=== PATIENT | female | born 1985 | race Caucasian/White ===

== ENCOUNTER → 2022-04-18 | Outpatient (CLI) | payer OTHER ==
--- NOTE | 2022-04-19 12:14 | MM ---
Reason for Exam: Screening (asymptomatic). Last mammogram was performed 2 year(s) and 7 month(s) ago. Patient History: Menarche at age 11. First Full-Term at age 25. Premenopausal. Patient used Hormonal Contraceptives for 7 years. Mother had breast cancer, age 53. Risk Values: Desiree 5 year model risk: 0.8%. NCI Lifetime model risk: 19.0%. Prior Study Comparison: 10/14/2019 Bilateral MG 3D screening mammo w/cad, [facility]. Tissue Density: The breast tissue is extremely dense which could obscure a lesion on mammography. Findings: Analyzed By CAD. There are few scattered benign-appearing round calcifications throughout both breasts redemonstrated. Tortuous prominent vessel upper aspect right breast again seen. There is no suspicious group of microcalcifications or new suspicious mass in either breast. Overall Assessment: Benign, BI-RAD 2 Management: Screening Mammogram of both breasts at age 39. Some advise bilateral breast ultrasound surveillance in patients with background extremely dense tissue. Electronically signed and approved by: Margarito Garcia M.D.
== END | disposition home or self-care (01) ==
LOC: RADMAMWWP 09:03
PROVIDERS: ATTEND Obstetrics & Gynecology
DX: Z12.31 Encounter for screening mammogram for malignant neoplasm of breast (principal); Z80.3 Family history of malignant neoplasm of breast
CPT/HCPCS: 77063; 77067

== ENCOUNTER 2023-08-01 07:52 | Day surgery (SDC) | payer BC, OTHER ==
[2023-07-31 11:33] VITALS: BMI 22.1
--- NOTE | 2023-07-31 14:41 | P.HPOB ---
History of Present Illness H&P Date: 07/31/23 Chief Complaint: menorrhagia 38 year old presents for D&C hysteroscopy and endometrial ablation with NovaSure. Review of Systems All systems: negative Constitutional: Denies chills, Denies fever Eyes: denies blurred vision, denies pain Ears, nose, mouth and throat: Denies headache, Denies sore throat Cardiovascular: Denies chest pain, Denies shortness of breath Respiratory: Denies cough Gastrointestinal: Denies abdominal pain, Denies diarrhea, Denies nausea, Denies vomiting Genitourinary: Denies dysuria, Denies hematuria Musculoskeletal: Denies myalgias Integumentary: Denies pruritus, Denies rash Neurological: Denies numbness, Denies weakness Psychiatric: Denies anxiety, Denies depression Endocrine: Denies fatigue, Denies weight change Past Medical History Past Medical History: No Reported History Additional Past Medical History / Comment(s): irregular and heavy menses History of Any Multi-Drug Resistant Organisms: None Reported Additional Past Surgical History / Comment(s): LEEP, wisdom teeth extracted. Past Anesthesia/Blood Transfusion Reactions: No Reported Reaction Additional Past Anesthesia/Blood Transfusion Reaction / Comment(s): no hx blood transfusion Smoking Status: Former smoker - Past Family History Mother Family Medical History: Cancer Additional Family Medical History / Comment(s): Breast cancer- at age 53 Father Family Medical History: Hypertension, Myocardial Infarction (CA) Medications and Allergies Home Medications Medication Instructions Recorded Confirmed Type Biotin 5 mg PO DAILY 07/31/23 07/31/23 History Magnesium 250 mg PO DAILY 07/31/23 07/31/23 History Allergies Allergy/AdvReac Type Severity Reaction Status Date / Time amoxicillin Allergy Unknown Verified 07/31/23 11:24 Childhood ciprofloxacin [From Cipro] Allergy "Bad Verified 07/31/23 11:24 mental thoughts."" Penicillins Allergy Rash/Hives Verified 07/31/23 11:24 sulfamethoxazole AdvReac "Red, Verified 07/31/23 11:24 [From Bactrim] heated skin." trimethoprim [From Bactrim] AdvReac "Red, Verified 07/31/23 11:24 heated skin." Exam Osteopathic Statement: *. No significant issues noted on an osteopathic structural exam other than those noted in the History and Physical/Consult. Intake and Output 07/30/23 07/31/23 07/31/23 22:59 06:59 14:59 Other: Weight 53.07 kg HEart: RRR Lungs: CTAB Abdomen: soft, nontender Extremeties: neg ziggy's Assessment and Plan (1) Menorrhagia Status: Acute Code(s): N92.0 - EXCESSIVE AND FREQUENT MENSTRUATION WITH REGULAR CYCLE SNOMED Code(s): 945200747 Plan: 1. D&C hysteroscopy and endometrial ablation with NovaSure
[~2023-08-01 07:52] MED LIST: DEXAMETHASONE SOD PHOSPHATE 4 MG/ML 1 ML VIAL IV ONE; LACTATED RINGERS 1,000 ML IV SCH; ONDANSETRON 4 MG/2 ML VIAL IVP ONE; Pre Op ABX Message 1 EACH MISC MISCELLANE ONE; fentaNYL (PF) 50 MCG/ML 2 ML AMP IV PRN
[2023-08-01] MEDS ORDERED: LACTATED RINGERS 1,000 ML IV ONE (08:13)
[2023-08-01] MEDS ORDERED: LIDOCAINE 2% INJ 20 MG/ML (2 ML VIAL) ONE (09:18)
[2023-08-01] MEDS ORDERED: KETOROLAC 15 MG/ML 1 ML VIAL ONE (09:18)
[2023-08-01] MEDS ORDERED: fentaNYL (PF) 50 MCG/ML 2 ML AMP ONE (09:18)
[2023-08-01] MEDS ORDERED: PROPOFOL 10 MG/ML 20 ML VIAL IV ONE (09:18)
[2023-08-01] MEDS ORDERED: MIDAZOLAM 2 MG/2 ML VIAL ONE (09:18)
--- NOTE | 2023-08-01 10:00 | P.OP ---
Date of Procedure: 08/01/23 Preoperative Diagnosis: 1. menorrhagia Postoperative Diagnosis: 1. menorrhagia Procedure(s) Performed: D&C, hysteroscopy, endometrial ablation with NovaSure Anesthesia: MAC (LMA) Surgeon: Veronica Kelly Estimated Blood Loss (ml): 3 IV fluids (ml): 200 Urine output (ml): 50 Pathology: other (Endometrial curetting) Condition: stable Disposition: PACU Operative Findings: Uterus sounded to 7 cm. Cavity length was 5 cm, width 3.7 cm, 102 W, time of ablation 53 seconds. Adequate ablation after NovaSure Description of Procedure: Patient is taken the operating room where general anesthesia was obtained without difficulty. She was prepped and draped in normal sterile fashion dorsal lithotomy position, legs placed in the candy cane stirrups. Bladder was drained of all urine. Weighted speculum placed in the vagina and the anterior lip the cervix was grasped with serial tooth tenaculum. The uterus sounded to 7 cm and the cervix under 2 cm making the cavity length 5 cm. The cervix was dilated to #8 Hegar dilator. Hysteroscopy was then performed. Both ostia were visualized and there was a smooth contour of the uterus. Sharp curet was then gently used to obtain endometrial curettings. The NovaSure was introduced into the uterus with a cavity length of 5 cm, width 3.7 cm. after cavity assessment was passed, the time of ablation was 53 seconds at 102 W. Hysteroscopy was again performed and adequate ablation was noted. All instruments removed from the vagina. Patient tolerated the procedure well, sponge and instrument counts were correct 2 and she was taken to recovery in stable condition.
[2023-08-01 15:57] VITALS: BP 133/79; PULSE 59; RESP 17; TEMP 97.2
== END 2023-08-01 11:40 | disposition home or self-care (01) ==
LOC: OR 07:52
PROVIDERS: ATTEND Obstetrics & Gynecology
DX: N72 Inflammatory disease of cervix uteri (principal); N92.0 Excessive and frequent menstruation with regular cycle; Z87.891 Personal history of nicotine dependence; Z88.1 Allergy status to other antibiotic agents; Z88.0 Allergy status to penicillin; Z88.2 Allergy status to sulfonamides
CPT/HCPCS: 58563; 81025; 88305; J2250; J1100; J2405; J3010; J1885; J2704; J2001